=== PATIENT | female | born 1995 | race Hispanic/Latino ===

== ENCOUNTER 2021-12-28 10:58 | Emergency (ER) | payer MEDICAID, SELFPAY ==
[~2021-12-28] VITALS: Ht 165.1 cm; Wt 60.3 kg
[2021-12-28] MEDS ORDERED: ACETAMINOPHEN 325 MG TAB PO ONE (14:25)
[2021-12-28] MEDS ORDERED: ONDANSETRON 4MG 2ML VIAL IV ONE (14:25)
[2021-12-28 15:13] LABS: BASO % 0.7 % (0.0-1.0); EOS # 0.4 10^3/uL (0.0-0.5); EOS % 8.5 % (0.0-3.0); HEMATOCRIT 38.8 % (36.0-47.0); HEMOGLOBIN 11.2 g/dl (12.0-15.5); LYMPH # 1.4 10^3/uL (1.5-5.0); MEAN CORPUSCULAR HEMOGLOBIN 22.6 pg (27.0-33.0); MEAN CORPUSCULAR HGB CONC 28.9 g/dl (32.0-36.5); MEAN CORPUSCULAR VOLUME 78.2 fl (80.0-96.0); MONO # 0.4 10^3/uL (0.0-0.8); MONO % 9.6 % (2.0-8.0); NEUTROPHILS # 2.1 10^3/uL (1.5-8.5); NEUTROPHILS % 48.2 % (36.0-66.0); PLATELET COUNT, AUTOMATED 229 10^3/uL (150-450); RED BLOOD COUNT 4.96 10^6/uL (4.00-5.40); WHITE BLOOD COUNT 4.4 10^3/uL (4.0-10.0)
[2021-12-28 15:50] LABS: ALT/SGPT 43 U/L (12-78); BILIRUBIN,DIRECT < 0.1 MG/DL (0.0-0.2); BILIRUBIN,TOTAL 0.3 MG/DL (0.2-1.0); LIPASE 97 U/L (73-393); TOTAL PROTEIN 8.1 GM/DL (6.4-8.2)
[2021-12-28] MEDS ORDERED: ONDA4TAB6 PO (17:17)
[2021-12-28 17:38] VITALS: BP 99/62
== END 2021-12-28 17:40 | disposition home or self-care (01) ==
LOC: M ED 10:58
DX: R10.9 Unspecified abdominal pain (principal); R05.3 Chronic cough; R11.0 Nausea
CPT/HCPCS: 71046; 76705; 80047; 80076; 81001; 83690; 84702; 85025; 87426; 96374; 99284; J2405